=== PATIENT | male | born 1950 | race Caucasian/White ===

== ENCOUNTER 2019-01-06 07:38 | Day surgery (SDC) | payer OTHER ==
[~2019-01-06] VITALS: Ht 170.2 cm; Wt 70.8 kg
[~2019-01-06 07:38] MED LIST: CARV3.1240 PO; CHOL4POW4 PO; CYAN1KIT SC; LOPE7.5C PO; LOSA25TA40 PO; NAPR220C PO; PAR20T PO
[2019-01-06] MEDS ORDERED: IODIXANOL 320MG/ML 100ML BTL IV ONE (08:26)
[2019-01-06] MEDS ORDERED: LIDOCAINE 2%HCL (LOCAL ANESTH.) INJ 20ML MDV ONE (08:26)
[2019-01-06] MEDS ORDERED: VERAPAMIL 2.5MG/ML INJ 2ML VIAL IV ONE (08:27)
[2019-01-06] MEDS ORDERED: ANGIOMAX 250 MG VIAL IV ONE (08:27)
[2019-01-06] MEDS ORDERED: fentaNYL CITRATE 100 MCG/2 ML VL ONE (08:28)
[2019-01-06] MEDS ORDERED: MIDAZOLAM HCL 1MG/1ML-2 ML VIAL ONE (08:28)
[2019-01-06] MEDS ORDERED: SODIUM CHL 0.9% 0 ML ONE (08:28)
[2019-01-06] MEDS ORDERED: HYDROcodone-ACET 5/325MG TAB PO PRN (09:45)
[2019-01-06] MEDS ORDERED: MORPHINE SULFATE 4 MG/ML SYR/VIAL IV PRN (09:45)
[2019-01-06] MEDS ORDERED: ONDANSETRON HCL 4 MG/2 ML VIAL IV PRN (09:45)
[2019-01-06] MEDS ORDERED: ACETAMINOPHEN 500 MG TAB PO PRN (09:45)
== END 2019-01-06 12:05 | disposition home or self-care (01) ==
LOC: CATH 07:38
PROVIDERS: ATTEND Internal Medicine
DX: I25.10 Atherosclerotic heart disease of native coronary artery without angina pectoris (principal); I71.2 Thoracic aortic aneurysm, without rupture; I35.1 Nonrheumatic aortic (valve) insufficiency; K50.90 Crohn's disease, unspecified, without complications; I10 Essential (primary) hypertension; Z91.02 Food additives allergy status; Z87.891 Personal history of nicotine dependence; Z91.018 Allergy to other foods
CPT/HCPCS: 36224; 93005; 93458; A6257; C1726; C1760; C1769; C1874; C1887; C1894; J1644; J2250; J3010; J7030; 99152; 99153; Q9967

== ENCOUNTER 2019-02-03 06:23 | Emergency (ER) | payer OTHER ==
[~2019-02-03] VITALS: Ht 167.6 cm; Wt 70.8 kg
[2019-02-03] MEDS ORDERED: SODIUM CHLORIDE 0.9% 500 ML IVB ONE (07:52)
[2019-02-03] MEDS ORDERED: SODIUM CHLORIDE 0.9% 1,000 ML IV ONE (07:52)
[2019-02-03] MEDS ORDERED: PROMETHAZINE HCL 25 MG/ML 1ML IV PRN (08:00)
[2019-02-03 08:17] LABS: Basophils # (auto) 0.1 uL; Basophils % (auto) 0.5 % (0.0-2.0); Eosinophils # (auto) 0.2 uL; Eosinophils % (auto) 1.2 % (0.0-7.0); Hematocrit 35.1 % (41.0-53.0); Hemoglobin 11.6 g/dL (13.5-17.5); Lymphocytes # (auto) 1.3 uL; Lymphocytes % (auto) 7.7 % (10.0-50.0); Mean Corpuscular Hemoglobin 28.2 pg (28.0-32.0); Mean Corpuscular Hgb Conc. 33.1 g/dL (32.0-36.0); Mean Corpuscular Volume 85.3 fL (80.0-100.0); Monocytes # (auto) 2.1 uL; Monocytes % (auto) 12.6 % (0.0-12.0); Neutrophils # (auto) 12.9 uL; Nucleated Red Blood Cells % 0.1 %; Platelet Count (auto) 451 10^3/uL (140-450); Red Blood Cells 4.11 10^6/uL (4.5-5.90); Red Cell Distribution Width 15.9 % (11.8-14.3); White Blood Cell 16.5 10^3/uL (4.4-10.8)
[2019-02-03 08:36] LABS: Albumin 2.7 g/dL (3.4-5.0); BUN/Creatinine Ratio 32.3; Calcium 8.8 mg/dL (8.5-10.1); Magnesium 2.6 mg/dL (1.6-2.6); Potassium 5.1 mmol/L (3.5-5.1)
[2019-02-03 08:42] LABS: Bilirubin, Total 0.7 mg/dL (0.2-1.0); Total Protein 6.4 g/dL (6.4-8.2)
[2019-02-03 08:44] LABS: Partial Thromboplastin Time 31.3 sec (23.78-33.04); Prothrombin Time 10.7 sec (9.27-12.13)
[2019-02-03] MEDS ORDERED: FLEET MINERAL OIL ENEMA 133 ML PR ONE (09:00)
[2019-02-03 10:17] VITALS: BP 124/60
[2019-02-03 10:48] LABS: Urine Amorphous Crystal FEW /hpf (None Seen); Urine Bacteria NONE SEEN /hpf (None Seen); Urine Blood Negative /uL (Negative); Urine Specific Gravity 1.026 (1.001-1.035); Urine WBC 4 /hpf (0 - 3)
== END 2019-02-03 12:45 | disposition home or self-care (01) ==
LOC: EDBD 06:23 → ER 06:27
DX: K59.01 Slow transit constipation (principal); E87.5 Hyperkalemia; E44.0 Moderate protein-calorie malnutrition; F41.9 Anxiety disorder, unspecified; F32.9 Major depressive disorder, single episode, unspecified; I10 Essential (primary) hypertension; Z88.0 Allergy status to penicillin; Z68.25 Body mass index [BMI] 25.0-25.9, adult; Z91.018 Allergy to other foods; Z79.899 Other long term (current) drug therapy; Z98.890 Other specified postprocedural states
CPT/HCPCS: 36415; 71046; 74176; 80053; 81001; 82150; 83605; 83690; 83735; 84443; 84484; 85025; 85610; 85730; 93005; 94761; 96361; 96374; 99284; J2550; J7030; J7040

== ENCOUNTER 2019-02-10 14:20 | Emergency (ER) | payer OTHER ==
[~2019-02-10] VITALS: Ht 167.6 cm; Wt 70.8 kg
[2019-02-10 15:59] LABS: Alanine Aminotransferase 50 U/L (16-61); Albumin 3.2 g/dL (3.4-5.0); Anion Gap 5 (5-15); Aspartate Aminotransferase 34 U/L (15-37); Basophils # (auto) 0.1 uL; Blood Urea Nitrogen 21 mg/dL (7-18); Calcium 9.2 mg/dL (8.5-10.1); Carbon Dioxide 26 mmol/L (21-32); Chloride 107 mmol/L (98-107); Glucose 109 mg/dL (74-106); Lymphocytes # (auto) 1.3 uL; Mean Corpuscular Hgb Conc. 33.8 g/dL (32.0-36.0); Mean Corpuscular Volume 85.4 fL (80.0-100.0); Monocytes # (auto) 1.3 uL; Neutrophils # (auto) 5.9 uL; Potassium 4.1 mmol/L (3.5-5.1); Red Cell Distribution Width 15.6 % (11.8-14.3); Sodium 138 mmol/L (136-145)
[2019-02-10 16:02] LABS: Basophils % (auto) 0.7 % (0.0-2.0); Eosinophils # (auto) 0.2 uL; Eosinophils % (auto) 2.5 % (0.0-7.0); Hematocrit 32.7 % (41.0-53.0); INR 0.9 (0.9-1.15); Lymphocytes % (auto) 14.4 % (10.0-50.0); Mean Corpuscular Hemoglobin 28.8 pg (28.0-32.0); Monocytes % (auto) 14.6 % (0.0-12.0); Neutrophils % (auto) 67.8 % (37.0-80.0); Nucleated Red Blood Cells % 0.1 %; Partial Thromboplastin Time 32.2 sec (23.78-33.04); Platelet Count (auto) 455 10^3/uL (140-450); Prothrombin Time 9.7 sec (9.27-12.13); Red Blood Cells 3.83 10^6/uL (4.5-5.90); White Blood Cell 8.7 10^3/uL (4.4-10.8)
[2019-02-10 16:04] LABS: Alkaline Phosphatase 82 U/L (45-117); BUN/Creatinine Ratio 17.9; Bilirubin, Total 0.2 mg/dL (0.2-1.0); GFR African American 80 mL/min; GFR Non-African American 66 mL/min; Total Protein 6.9 g/dL (6.4-8.2)
[2019-02-10 16:57] LABS: Urine Bacteria NONE SEEN /hpf (None Seen); Urine Blood Negative /uL (Negative); Urine Mucus FEW (None Seen); Urine Specific Gravity 1.028 (1.001-1.035); Urine WBC 2 /hpf (0 - 3)
[2019-02-10] MEDS ORDERED: ACETAMINOPHEN 500 MG TAB PO ONE ×2 (17:15→17:30)
[2019-02-10] MEDS: NAPROXEN 500 MG TAB PO ONE ×2 (19:00→19:06)
[2019-02-10 20:30] VITALS: BP 112/63
== END 2019-02-10 20:31 | disposition home or self-care (01) ==
LOC: ER 14:20
DX: R42 Dizziness and giddiness (principal); R55 Syncope and collapse; F41.9 Anxiety disorder, unspecified; F32.9 Major depressive disorder, single episode, unspecified; I10 Essential (primary) hypertension; E44.1 Mild protein-calorie malnutrition; K50.90 Crohn's disease, unspecified, without complications; I24.1 Dressler's syndrome; Z95.828 Presence of other vascular implants and grafts; Z68.25 Body mass index [BMI] 25.0-25.9, adult; Z88.0 Allergy status to penicillin; Z91.018 Allergy to other foods
CPT/HCPCS: 36415; 71046; 80053; 81001; 84484; 85025; 85610; 85652; 85730; 93005

== ENCOUNTER 2019-02-11 16:33 | Inpatient (IN) | payer OTHER | END 2019-02-12 14:35 | disposition home or self-care (01) | LOC: ER 16:33 → TELE 21:11 → TELE-WESTW 23:23 | DX: I20.0 Unstable angina (principal); K50.90 Crohn's disease, unspecified, without complications ==